=== PATIENT | male | born 1950 | race Caucasian/White ===

== ENCOUNTER 2023-06-03 16:27 | Emergency (ER) | payer MEDICARE, BC ==
[~2023-06-03] VITALS: Ht 172.7 cm; Wt 75.3 kg
[2023-06-03 16:34] VITALS: TEMP 98.3
[2023-06-03 19:40] VITALS: BP 142/79; PULSE 75; RESP 17; O2SAT 98
== END 2023-06-03 19:43 | disposition home or self-care (01) ==
LOC: ER 16:29
DX: M79.662 Pain in left lower leg (principal); Z88.2 Allergy status to sulfonamides; Z98.890 Other specified postprocedural states
CPT/HCPCS: 99281